=== PATIENT | female | born 1945 ===

== ENCOUNTER 2018-10-02 18:34 | Emergency (ER) | payer OTHER ==
[2018-10-02 19:12] VITALS: RESP 18; TEMP 98.2; O2SAT 97
[2018-10-02] MEDS ORDERED: DiphenhydrAMINE 50 mg/ml Inj IVP STA (19:32)
--- NOTE | 2018-10-02 19:39 | ED PDOC ---
HPI: Skin/Bite Injury Time Seen by Provider: 10/02/18 19:15 Chief Complaint (Nursing): Abnormal Skin Integrity Chief Complaint (Provider): RASH History Per: Patient History/Exam Limitations: no limitations Onset/Duration Of Symptoms: Days Current Symptoms Are (Timing): Still Present Severity: Moderate Pain Scale Rating Of: 0 Additional History Per: Patient Additional Complaint(s): 73 Y/O FEMALE WITH HX OF ASTHMA PRESENTS TO THE ED WITH EXTENSIVE REDNESS TO FACE EXTENDING TO NECK, CHEST AND UNDER BREAST. PT STATES SHE WAS STARTED ON PENICILLIN 2 WEEKS AGO AFTER BEING DX WITH THE FLU, PT REPORTS RASH STARTED TO THE FACE, PT WAS SEEN BY PMD LAST WEEK AND WAS INSTRUCTED TO DISCONTINUE TAKING ANTIBIOTICS AND GIVEN "WHITE CREAM" TO APPLY TO FACE. PT REPORTS RASH SPREAD WHICH PROMPTED ED VISIT. PT DENIES SOB, FEVER, JOINT PAIN, BURNING SENSATION. Past Medical History Vital Signs: Last Vital Signs Temp 98.2 F 10/02/18 19:09 Pulse 64 10/02/18 19:09 Resp 18 10/02/18 19:09 BP 131/82 10/02/18 19:09 Pulse Ox 97 10/02/18 19:09 - Medical History PMH: Anxiety, Arthritis, Asthma, HTN, Osteoporosis - Surgical History Surgical History: Cholecystectomy - Family History Family History: States: Unknown Family Hx - Living Arrangements Living Arrangements: Alone - Social History Alcohol: None Drugs: Denies - Immunization History Hx Influenza Vaccination: No Hx Pneumococcal Vaccination: No - Home Medications Home Medications: Ambulatory Orders Medication Instructions Recorded Baclofen [Lioresal] 10 mg PO BID 10/01/15 Gabapentin [Neurontin] 600 mg PO BID 10/01/15 Hydroxychloroquine Sulfate 200 mg PO BID 10/01/15 [Plaquenil] Losartan [Cozaar] 25 mg PO DAILY 10/01/15 Metoprolol Tartrate [Lopressor] 25 mg PO BID 10/01/15 Topiramate [Trokendi Xr] 25 mg PO DAILY 10/01/15 rOPINIRole [Requip] 0.25 mg PO BID 10/01/15 Amoxicillin/Clavulanate [Augmentin 1 tab PO BID #14 tab 10/14/16 875 MG-125 MG] Calcium 600-Vit D3 400 Tablet 1 tab 10/14/16 Furosemide 20 mg PO 10/14/16 Levocetirizine Dihydrochloride 5 mg PO PRN PRN 10/14/16 Meclizine HCl 12.5 mg PO PRN PRN 10/14/16 Montelukast 10 mg PO 10/14/16 Pantoprazole Sodium 40 mg PO PRN PRN 10/14/16 Proair Hfa 1 puff INH DAILY 10/14/16 Thera-M Caplet 1 tab PO DAILY 10/14/16 traMADol [Ultram] 50 mg PO TID PRN #10 tab 10/14/16 Miconazole 2% [Miconazole 2% Cream] 1 cre TOP BID #1 tube 04/27/17 - Allergies Allergies/Adverse Reactions: Allergies Allergy/AdvReac Type Severity Reaction Status Date / Time No Known Allergies Allergy Verified 04/27/17 12:01 Review of Systems ROS Statement: Except As Marked, All Systems Reviewed And Found Negative Constitutional: Negative for: Fever, Sweats, Weakness, Malaise, Weight loss Eyes: Negative for: Pain, Vision Change, Conjunctivae Inflammation, Eyelid Inflammation, Redness ENT: Negative for: Ear Pain, Nose Congestion, Throat Swelling Cardiovascular: Negative for: Chest Pain, Palpitations, Orthopnea Respiratory: Negative for: Cough, Shortness of Breath, SOB with Exertion, Wheezing Gastrointestinal: Negative for: Nausea, Vomiting, Abdominal Pain, Constipation Genitourinary Female: Negative for: Dysuria Musculoskeletal: Negative for: Neck Pain, Shoulder Pain, Arm Pain, Back Pain, Hand Pain, Leg Pain Skin: Positive for: Rash (ITCHY, PT REPORTS WHEN SHE SHOWERS DRY SKIN PEELS OFF. PT DENIES PREVIOUS BLISTERING OF THE SKIN) Neurological: Negative for: Weakness Physical Exam - Reviewed Nursing Documentation Reviewed: Yes Vital Signs Reviewed: Yes - Physical Exam Appears: Positive for: Well, Non-toxic, No Acute Distress Head Exam: Positive for: ATRAUMATIC, NORMAL INSPECTION, NORMOCEPHALIC Skin: Positive for: Normal Color, Warm, Dry, Rash (MACULAR RASH TO FACE, NECK, CHEST AND UNDER BREAST, BEEFY RED, AREAS OF FLAKINESS TO THE FACE. Rash does not extend entirely across cheeks, boarder of rash are clearly demarcated. NO OPENING OF THE SKIN) Eye Exam: Positive for: EOMI, Normal appearance, PERRL ENT: Positive for: Normal ENT Inspection Neck: Positive for: Normal, Painless ROM Cardiovascular/Chest: Positive for: Regular Rate, Rhythm Respiratory: Positive for: CNT, Normal Breath Sounds Gastrointestinal/Abdominal: Positive for: Normal Exam, Soft Back: Positive for: Normal Inspection. Negative for: L CVA Tenderness, R CVA Tenderness Extremity: Positive for: Normal ROM Neurological/Psych: Positive for: Awake, Alert, Normal Tone, Oriented - ECG O2 Sat by Pulse Oximetry: 97 - Progress ED Course And Treament: CBC CMP BENADRYL 50MG PEPCID 20MG SOLUMEDROL 125MG 0.9NS L RE-EVAL 20:00: Pt handed off to arsenio reilly pa-c at bedside. Pending labs, monitor for improvement Disposition - Clinical Impression Clinical Impression: Rash - Disposition Disposition Time: 20:00 Condition: STABLE Forms: [facility] (Guyanese) Patient Signed Over To: Edwin Reilly Handoff Comments: follow-up on labs, improvement of rash - POA Present On Arrival: None
[2018-10-02] MEDS ORDERED: Sodium Chloride 0.9% 1,000 ML IV STA (19:57)
[2018-10-02] MEDS ORDERED: DiphenhydrAMINE 50 mg/ml Inj ONE (20:01)
[2018-10-02 20:22] LABS: BASO # 0.1 K/uL (0.0-0.2); BASO % 0.6 % (0.0-2.0); EOS # 0.1 K/uL (0.0-0.7); EOS % 1.7 % (0.0-4.0); LYMPH # 1.7 K/uL (1.0-4.3); LYMPH % 20.3 % (20.0-40.0); MEAN CELL VOLUME 86.1 fl (81.0-99.0); MEAN CORPUSCULAR HEMOGLOBIN 27.6 pg (27.0-31.0); MEAN PLATELET VOLUME 8.8 fl (7.2-11.7); MONO # 0.8 K/uL (0.0-0.8); MONO % 9.5 % (0.0-10.0); NEUT # 5.8 K/uL (1.8-7.0); NEUT % 67.9 % (50.0-75.0); RBC 5.43 Mil/uL (3.80-5.20); RED CELL DISTRIBUTION WIDTH 14.4 % (11.5-14.5); WHITE BLOOD COUNT 8.6 K/uL (4.8-10.8)
[2018-10-02 20:28] LABS: ALB/GLOB RATIO 1.3 (1.0-2.1); ALBUMIN 4.3 g/dL (3.5-5.0); ALT/SGPT 25 U/L (9-52); AST/SGOT 20 U/L (14-36); BLOOD UREA NITROGEN 16 mg/dl (7-17); CALCIUM 10.4 mg/dL (8.4-10.2); GFR NON-AFRICAN AMERICAN 55
--- NOTE | 2018-10-02 20:47 | ED PDOC ---
- Laboratory Results Result Diagrams: 10/02/18 20:10 10/02/18 20:10 Lab Results: Total Bilirubin 0.5 mg/dl (0.2-1.3) 10/02/18 20:10 AST 20 U/L (14-36) 10/02/18 20:10 ALT 25 U/L (9-52) 10/02/18 20:10 Alkaline Phosphatase 85 U/L (38-126) 10/02/18 20:10 Total Protein 7.6 G/DL (6.3-8.2) 10/02/18 20:10 Albumin 4.3 g/dL (3.5-5.0) 10/02/18 20:10 Globulin 3.2 gm/dL (2.2-3.9) 10/02/18 20:10 Albumin/Globulin Ratio 1.3 (1.0-2.1) 10/02/18 20:10 - ECG O2 Sat by Pulse Oximetry: 97 - Progress ED Course And Treament: 1999 Signed out to me pending labs and re-evaluation. 2014 On my initial evaluation pt. in no distress. Currently receiving meds. Will re-evaluate. 2109 On re-evaluation, pt. reports good relief of itching. Rash still present but erythema has decreased. Denies SOB, throat swelling. Lungs clear b/l. No wheezing or stridor. Pt. requesting to be dc'd. Advised to f/u with PMD for further evaluation but is to return to ED immediately if symptoms worsen. Disposition - Clinical Impression Clinical Impression: Rash, Cellulitis - POA Present On Arrival: None - Disposition Referrals: [facility] [place] [Outside] Disposition: Routine/Home Disposition Time: 21:17 Condition: IMPROVED Additional Instructions: FOLLOW UP WITH YOUR DOCTOR FOR FURTHER EVALUATION RETURN TO ED IMMEDIATELY IF SYMPTOMS WORSEN SHABANA BURROWS, thank you for letting us take care of you today. Your provider was Carisa Salguero MD and you were treated for BODY RASH. The emergency medical care you received today was directed at your acute symptoms. If you were prescribed any medication, please fill it and take as directed. It may take several days for your symptoms to resolve. Return to the Emergency Department if your symptoms worsen, do not improve, or if you have any other problems. Please contact your doctor or call one of the physicians/clinics you have been referred to that are listed on the Patient Visit Information form that is included in your discharge packet. Bring any paperwork you were given at discharge with you along with any medications you are taking to your follow up visit. Our treatment cannot replace ongoing medical care by a primary care provider outside of the emergency department. Thank you for allowing the [facility] team to be part of your care today. If you had an X-Ray or CT scan: A Radiologist will review the ED reading if any change in treatment is needed we will contact you. If you had a blood, urine, or wound culture: It will take several days for the results, if any change in treatment is needed we will contact you. If you had an STI test: It will take 48 hours for the results. Please call after 1 week if you have not heard back. Prescriptions: Cephalexin [cephalexin] 500 mg PO Q6 #28 cap DiphenhydrAMINE [Benadryl] 50 mg PO Q6 PRN #12 cap PRN Reason: ITCHING OR RASH Methylprednisolone [Medrol Dose Pack (21 tabs)] 4 mg PO DAILY #21 mg Instructions: Skin Rash (DC), Cellulitis (Skin Infection), Adult (DC) Forms: [employer] (Slovenian)
[2018-10-02 21:58] VITALS: BP 169/87; PULSE 61
== END 2018-10-02 21:57 | disposition home or self-care (01) ==
LOC: H.ER 18:34
DX: R21 Rash and other nonspecific skin eruption (principal); I10 Essential (primary) hypertension; J45.909 Unspecified asthma, uncomplicated; Z23 Encounter for immunization; Z79.899 Other long term (current) drug therapy; M81.0 Age-related osteoporosis without current pathological fracture
CPT/HCPCS: 80053; 85025; 96361; 96374; 96375; 99283; J1200; J2930; J7030